=== PATIENT | male | born 1990 | race African-American/Black ===

== ENCOUNTER 2019-07-07 13:00 | Inpatient (IN) | payer SELFPAY ==
[2019-07-07] VITALS (386 sets, daily range): BP systolic 125–155; BP diastolic 79–111; PULSE 88–234; TEMP 97.9–98.2; O2SAT 93–100
[~2019-07-07] VITALS: Ht 182.9 cm; Wt 116.8 kg
--- NOTE | 2019-07-07 13:10 | NUR ---
Patient arrives via [facility] and ambulates with steady gait to ICU bed. He is attached to monitors. VSS and assessment as charted. Dr. Gonzalez called and notified of patient arrival and TORB for insulin gtt starting rate of 5units/hr without bolus and NS at 200 ml/hr. Care assumed at this time.
[2019-07-07 14:03] LABS: CALCIUM 9.6 mg/dL (8.4-10.2); CREATININE, serum 0.76 (0.66-1.25); POTASSIUM 4.2 mmol/L (3.4-5.0); TOTAL PROTEIN 8.4 gm/dL (6.4-8.2)
[2019-07-07 14:04] LABS: HEMATOCRIT 50.5 % (42.0-52.0); HEMOGLOBIN 17.3 g/dl (13.5-18.0); MEAN CELL VOLUME 84 fl (80.0-100.0); MEAN CORPUSCULAR HEMOGLOBIN 29 pg (27.0-31.0); MEAN CORPUSCULAR HGB CONC 34 g/dl (33.0-37.0); MEAN PLATELET VOLUME 12.5 fl (7.4-10.4); PLATELET COUNT 201 K/mm3 (130-400); RED BLOOD COUNT 6.04 M/mm3 (4.20-5.60); REDCELL DISTRIBUTION WIDTH-CV 12.7 % (11.5-14.5)
[2019-07-07 14:06] LABS: MAGNESIUM 2.2 mg/dL (1.6-2.3); PHOSPHOROUS 3.5 mg/dL (2.5-4.5)
[2019-07-07 14:42] LABS: EOSINOPHIL 1 % (0-4); LYMPHOCYTE 41 % (20.0-51.0); NEUTROPHILS 53 % (42.0-75.2); PLATELET ESTIMATE NORMAL (NORMAL)
--- NOTE | 2019-07-07 14:45 | NUR ---
Dr. Gonzalez enters orders as seen CPOE with additional verbal clarification to provide ordered levemir dose at time of patients first meal and discontinue insulin gtt 2 hours after this time. Care ongoing.
[2019-07-07 16:48] LABS: CREATININE, serum 0.72 (0.66-1.25); POTASSIUM 3.9 mmol/L (3.4-5.0)
[2019-07-08] VITALS (606 sets, daily range): BP systolic 101–146; BP diastolic 73–97; PULSE 78–94; TEMP 97.7–98.6; O2SAT 90–100
--- NOTE | 2019-07-08 07:30 | NUR ---
Report received from MARTIN Barrera.
--- NOTE | 2019-07-08 08:00 | NUR ---
Assessment completed. Pt eating breakfast, watching tv. Discussed plan of care r/t blood sugar checks, insulin sliding scale and diabetic education. Pt states he does not have a PCP. Discussed c/s with social work for discharge planning. Pt verbalized understanding. All questions answered to pt's satisfaction. Toothbrush/toothpaste and bath wipes provided for pt. Call light in reach.
[2019-07-08 09:28] LABS: HEMATOCRIT 38.6 % (42.0-52.0); MEAN CELL VOLUME 86 fl (80.0-100.0); MEAN CORPUSCULAR HEMOGLOBIN 29 pg (27.0-31.0); MEAN CORPUSCULAR HGB CONC 34 g/dl (33.0-37.0); MEAN PLATELET VOLUME 12.4 fl (7.4-10.4); PLATELET COUNT 205 K/mm3 (130-400); RED BLOOD COUNT 4.47 M/mm3 (4.20-5.60); REDCELL DISTRIBUTION WIDTH-CV 13.1 % (11.5-14.5)
[2019-07-08 09:38] LABS: CALCIUM 8.4 mg/dL (8.4-10.2); CREATININE, serum 0.64 (0.66-1.25); POTASSIUM 3.6 mmol/L (3.4-5.0)
[2019-07-08 09:54] LABS: BAND 2 % (0-10); BASOPHIL 1 % (0-2); EOSINOPHIL 2 % (0-4); LYMPHOCYTE 57 % (20.0-51.0); NEUTROPHILS 36 % (42.0-75.2)
--- NOTE | 2019-07-08 11:15 | NUR ---
CABINET ABRASIVE SANDBLASTER student met with the patient to complete initial intake. The patient lives alone in [place]. The patient denies DME usage and is independent with ADLs. The patient does not have a PCP. The patient is to have a follow up at [facility] in . The patient does receive medications from [facility] in . The patient may utilize [facility] pharmacy for insulin rx. The patient does not have advanced directives in the EMR and was not interested in a DPOA-HC form at this time. The patient was brought to [facility] via EMS from [facility] in and may need transport back to [facility] to black pickler his vehicle. His mother cannot drive him. data services developer will continue to follow to ensure a safe discharge.
--- NOTE | 2019-07-08 14:00 | NUR ---
Pt resting in bed. VSS. call light in reach.
--- NOTE | 2019-07-08 16:39 | NUR ---
The patient is to take his detailed discharge instructions to [facility] pharmacy after discharge to be able to obtain his insulin (must have specific calculations). SW informed Ana with Pharmacy about this information. The patient is to have an initial intake appointment with Dr. Ellis at [facility] in on 07/09 at 1500, arrival at 1440. client services vice president will continue to follow. [facility] (fax [phone]).
--- NOTE | 2019-07-08 16:40 | NUR ---
phone report given to Lynsey, social media marketer at 1530. Dr Gonzalez updated on blood sugar check of 294 and ordered IV insulin. Ok to transfer to floor after IV regular insulin given. Pt transerred to room 348 via wheelchair at 1615. Pt walked to recliner in room, steady gait. Call light in reach. Updated Lynsey Hand Cloth Folder of blood sugar check and IV insulin dose.
--- NOTE | 2019-07-08 18:00 | NUR ---
Patient has been doing well since arriving to the floor. Denies pain or nausea. Explained he will have to see diabetes education when he discharges. Explained that we will not be checking his WBG as often as the ICU was. No other changes at this time. Call light within reach.
--- NOTE | 2019-07-08 21:46 | NUR ---
Patient doing well tonight. alert and oriented. denies pain. WBG was 269, 10 units levemir and 8 units novolog given. discussed with patient if he wanted to inject himself with the insulin with me assisting, patient refused. patient teaching done while giving subQ injections into arm. IV to L hand patent and flushes. denies any further needs. will continue to monitor.
[2019-07-09 04:36] VITALS: BP 123/81; PULSE 71; TEMP 98.1
[2019-07-09 07:24] VITALS: BP 123/74; PULSE 72; TEMP 98.6
--- NOTE | 2019-07-09 08:25 | NUR ---
Lying in bed with eyes open. Denies pain. Says that he may possibly go home today. Patient says that no one has discussed with him what his insulin regimen will be when he goes home. Explain that we will need to discuss this with the providers today. Patient denies needs at this time.
[2019-07-09] MEDS ORDERED: LANCETS MC (09:04)
[2019-07-09] MEDS ORDERED: NOVOLOG FLEX100 U/ML SQ (09:04)
[2019-07-09] MEDS ORDERED: FREESTYLE PREC1 EAC5 MC (09:04)
[2019-07-09] MEDS ORDERED: GLUCOSE TEST ST1 DEV MC (09:04)
[2019-07-09] MEDS ORDERED: LEVEMIR FLEX100 U/ML SQ (09:04)
[2019-07-09] MEDS ORDERED: TRUE COMFORT P1 EAC1 MC (09:07)
--- NOTE | 2019-07-09 09:54 | NUR ---
Production Control Scheduler attended clinical rounds with the team and patient to discharge today. Patient has appointment set up with [facility] on 07/10/19. CLAY faxed prescriptions and discharge orders to [facility]. No additional needs at this time.
--- NOTE | 2019-07-09 10:55 | NUR ---
Reveiwed all discharge instructions with the patient. Questions answered. Patient signs discharge documents. Provided discharge packet to the patient. Awaiting confirmation regarding patient medications. Explain once we get confirmation on his medications we will be able to allow him to leave at that time. Patient verbalizes understanding and denies further needs at this time.
[2019-07-09 11:30] VITALS: BP 132/76; PULSE 75; TEMP 98
--- NOTE | 2019-07-09 12:32 | NUR ---
Patient assisted out of building with ISSAC Yang, as [employer] is here to pick him up to take him to [place] to get prescriptions and home. Patient denies any concerns or questions at this time. Patient has all personal belongings.
--- NOTE | 2019-07-09 13:18 | NUR ---
Hand Alterations Seamstress confirmed with Maggi at [facility] that patient can forklift picker his prescriptions today. CLAY provided update to patient who reports he does not have a ride home but does have money for a taxi. CLAY contacted [employer] who advised a ride to [place] would be $45. CLAY provided this vaca to patient who states he can afford this. CLAY notified MARTIN Brown when Shreyas Marin arrived. No additional needs at this time.
== END 2019-07-09 12:34 | disposition home or self-care (01) | DRG 638 ==
LOC: ICU 13:00 → SURG 07-08 15:33
PROVIDERS: ADMIT Student in an Organized Health Care Education/Training Program
DX: E11.10 Type 2 diabetes mellitus with ketoacidosis without coma (principal); N17.9 Acute kidney failure, unspecified; E86.0 Dehydration
CPT/HCPCS: 99223-AI; 99232-AI; 99239; J1650; J1815; J7030